=== PATIENT | male | born 1960 | race Caucasian/White ===

== ENCOUNTER 2023-01-05 22:34 | Emergency (ER) | payer OTHER ==
[~2023-01-05] VITALS: Ht 167.6 cm; Wt 77.1 kg
[2023-01-05] MEDS ORDERED: THIAMINE HCL 100 MG TABLET PO ONE (23:15)
[2023-01-05] MEDS ORDERED: POTASSIUM BICARBONATE/CIT AC 25 MEQ TABLET.EFF PO ONE (23:15)
[2023-01-05 23:22] LABS: HEMATOCRIT 35.5 % (36.7-47.1); MEAN CORPUSCULAR HEMOGLOBIN 29.5 uug (23.8-33.4); MEAN CORPUSCULAR VOLUME 90.8 fL (73.0-96.2); PLATELET COUNT (AUTO) 283 K/uL (152-348)
[2023-01-05] MEDS ORDERED: POTASSIUM BICARBONATE/CIT AC 25 MEQ TABLET.EFF ONE (23:31)
[2023-01-05] MEDS ORDERED: THIAMINE HCL 100 MG TABLET ONE (23:31)
[2023-01-05 23:57] LABS: BILIRUBIN,DIRECT 0.2 mg/dL (0.0-0.2); BILIRUBIN,TOTAL 0.4 mg/dL (0.2-1.0); CREATININE 1.1 mg/dL (0.6-1.3); POTASSIUM 3.9 mmol/L (3.5-5.1); TOTAL PROTEIN, SERUM 8.5 g/dL (6.4-8.2)
[2023-01-06 00:22] LABS: MAGNESIUM 1.9 mg/dL (1.8-2.4)
[2023-01-06] MEDS ORDERED: CHLO25CA22 PO (05:41)
[2023-01-06] MEDS ORDERED: CHLORDIAZEPOXIDE HCL 25 MG CAPSULE PO ONE (05:45)
[2023-01-06] MEDS ORDERED: CHLORDIAZEPOXIDE HCL 25 MG CAPSULE ONE (05:50)
[2023-01-06 07:01] VITALS: BP 126/86
== END 2023-01-06 06:59 | disposition home or self-care (01) ==
LOC: ER 22:34
DX: F10.129 Alcohol abuse with intoxication, unspecified (principal); D64.9 Anemia, unspecified; R74.01 Elevation of levels of liver transaminase levels; Z79.899 Other long term (current) drug therapy; Y90.6 Blood alcohol level of 120-199 mg/100 ml
CPT/HCPCS: 36415; 83735; 85025; A4663; G0480